=== PATIENT | female | born 1995 | race Caucasian/White ===

== ENCOUNTER → 2018-09-29 | Outpatient (CLI) | payer OTHER, BC ==
[~2018-09-29] MED LIST: AZIT250 PO; CENTRUM COMPLE1 EACH PO; DAPS100 PO; ERGO50000 PO; FAMO20 PO; FOLI1 PO; FURO20 PO; FURO40 PO; Flagyl500 MG PO; HYDSUL200 PO; LOSA25 PO; LOSA50 PO; MEDR150I IM; METO25; METO50 PO; MYCOPHENOLIC A360 MG PO; NIFE30ER PO; NIFE60ER PO; ONDA4 PO; PANT40; PANT40 PO; POTA20LUD PO; PRED20 PO; PROM25 PO; Prednisone20 MG PO
== END | disposition home or self-care (01) ==
LOC: LAB 15:59 → LAB SHORT 15:59
PROVIDERS: Obstetrics & Gynecology
DX: Z01.419 Encounter for gynecological examination (general) (routine) without abnormal findings (principal)
CPT/HCPCS: G0123

== ENCOUNTER → 2022-09-22 | Outpatient (CLI) | payer BC ==
[2022-09-25 18:11] LABS: HPV 16 Negative (Negative); HPV 18 Negative (Negative); HPV OTHER HR TYPES Negative (Negative)
== END | disposition home or self-care (01) ==
LOC: LAB 12:00 → LAB SHORT 12:00
PROVIDERS: Obstetrics & Gynecology
DX: Z12.4 Encounter for screening for malignant neoplasm of cervix (principal)
CPT/HCPCS: 87624; 88175